=== PATIENT | male | born 1980 | race Asian ===

== ENCOUNTER 2016-05-25 11:51 | Emergency (ER) | payer MEDICAID ==
[~2016-05-25] VITALS: Ht 175.3 cm; Wt 68.5 kg
[2016-05-25 11:59] VITALS: BP 126/77
== END 2016-05-25 13:44 | disposition home or self-care (01) ==
LOC: ED 11:51
DX: S61.012D Laceration without foreign body of left thumb without damage to nail, subsequent encounter (principal); Z79.899 Other long term (current) drug therapy; X58.XXXD Exposure to other specified factors, subsequent encounter; Y93.89 Activity, other specified; Y92.89 Other specified places as the place of occurrence of the external cause; Y99.8 Other external cause status